=== PATIENT | female | born 1940 | race Hispanic/Latino ===

== ENCOUNTER 2019-09-02 12:34 | Outpatient (CLI) | payer MEDICARE ==
--- NOTE | 2019-09-02 13:18 | RAD ---
EXAM: Chest PA and lateral: HISTORY: Chest pain COMPARISON: 01/22/2019 FINDINGS: Heart: Normal cardiac silhouette Aorta: There is atherosclerosis and elongation of the aorta Pulmonary vessels: Normal Costophrenic angles: Costophrenic angles are clear. Lungs: No consolidation or masses. Pneumothorax: No pneumothorax Osseous structures: No osseous abnormalities IMPRESSION: No acute cardiopulmonary process. Atherosclerosis.
== END 2019-09-02 12:35 | disposition home or self-care (01) ==
LOC: BICRAD 12:34
PROVIDERS: ATTEND Internal Medicine
DX: R07.9 Chest pain, unspecified (principal); I70.0 Atherosclerosis of aorta
CPT/HCPCS: 71046

== ENCOUNTER 2021-12-03 08:24 | Outpatient (CLI) | payer MEDICARE ==
[2021-12-03] MEDS ORDERED: Iopamidol-370 76% 500 ML 1 ML ONE (09:08)
== END 2021-12-03 08:25 | disposition home or self-care (01) ==
LOC: BICCT 08:24
PROVIDERS: ATTEND Physician Assistant Medical
DX: R10.9 Unspecified abdominal pain (principal); K58.9 Irritable bowel syndrome, unspecified
CPT/HCPCS: 74177; 82565; Q9967

== ENCOUNTER 2022-11-22 10:14 | Emergency (ER) | payer MEDICARE ==
[2022-11-22 11:05] LABS: #Eosinphils 0.1 thou/uL (0.0-0.7); #Monocytes 0.5 thou/uL (0.11-0.59); #Neutrophils 3.1 thou/uL (1.40-6.50); %Basophils 0.4 % (0.0-1.0); %Eosinophils 1.9 % (0.0-10.0); %Lymphocytes 28.8 % (21.0-51.0); %Monocytes 8.8 % (0.0-10.0); %Neutrophils 59.7 % (42.0-75.0); Hematocrit 35.7 % (36.0-47.0); Hemoglobin 12.1 g/dL (12.0-16.0); Mean Corpuscular HGB CONC 33.9 g/dL (32.0-36.0); Mean Corpuscular Hemoglobin 31.8 pg (27.0-31.0); Mean Corpuscular Volume 93.9 fl (78.0-98.0); Platelet Count 197 10x3/uL (130-400); RBC Distribution Width 13.7 % (11.5-14.5); White Blood Cell (WBC) Count 5.3 10x3/uL (4.8-10.8)
[2022-11-22 11:35] LABS: ALT (SGPT) 49 U/L (8-55); AST (SGOT) 49 U/L (5-34); Albumin 4.1 g/dL (3.4-4.8); Alkaline Phosphatase 79 U/L (40-110); Anion Gap 13 mmol/L (10-20); BUN (Urea Nitrogen) 7 mg/dL (9.8-20.1); Bilirubin, Total 0.3 mg/dL (0.2-1.2); Calc. Creatinine Clearance 0 mL/min (70-130); Calcium 9.2 mg/dL (7.8-10.44); Carbon Dioxide 25 mmol/L (23-31); Chloride 105 mmol/L (98-107); Estimated GFR 71; Glucose 104 mg/dL (83-110); Magnesium 2.1 mg/dL (1.6-2.6); Potassium 3.5 mmol/L (3.5-5.1); Protein, Total 7.1 g/dL (5.8-8.1); Sodium 139 mmol/L (136-145)
[2022-11-22 13:21] LABS: Troponin I Less than 0.010 ng/mL (< 0.028)
[2022-11-22 14:03] LABS: Bacteria/HPF None Seen HPF (None Seen); Bilirubin Negative (Negative); Blood, Urine Trace (Negative); CAUTI Indications for Culture Dysuria,urgency,freq; Clarity Clear (Clear); Glucose, Urine (Dipstick) Normal (Negative); Ketone, Urine Negative (Negative); Leukocyte Negative Leu/uL (Negative); Nitrite Negative (Negative); Protein, Urine (Dipstick) Negative (Neg-Trace); RBC/HPF 0-3 HPF (0-3); Specific Gravity, Urine 1.004 (1.002-1.036); Squamous Epithelial 0-3 HPF (0-3); Urobilinogen Normal mg/dL (Less than 2); WBC/HPF None Seen HPF (0-3)
[2022-11-22 14:06] LABS: Urine Culture Reflex No No
== END 2022-11-22 14:05 | disposition home or self-care (01) ==
LOC: ERS 10:14
DX: R22.43 Localized swelling, mass and lump, lower limb, bilateral (principal); L03.115 Cellulitis of right lower limb; L03.116 Cellulitis of left lower limb; E78.2 Mixed hyperlipidemia; I10 Essential (primary) hypertension
CPT/HCPCS: 71045; 80053; 81001; 83735; 83880; 84484; 85025; 93005; 93970

== ENCOUNTER 2024-02-09 19:54 | Emergency (ER) | payer MEDICARE ==
[~2024-02-09 19:54] MED LIST: Iopamidol-370 76% 500 ML MDV (1 ML CHARGE) ONE
[2024-02-09 21:05] LABS: #Basophils 0.04 10x3/uL (0.0-0.2); %Basophils 0.6 % (0.0-1.0); %Eosinophils 0.8 % (0.0-10.0); %Lymphocytes 17.8 % (21.0-51.0); %Monocytes 6.5 % (0.0-10.0); %Neutrophils 74.2 % (42.0-75.0); Hematocrit 35.7 % (36.0-47.0); Hemoglobin 11.8 g/dL (12.0-16.0); Mean Corpuscular HGB CONC 33.1 g/dL (32.0-36.0); Mean Corpuscular Hemoglobin 28.9 pg (27.0-31.0); Mean Corpuscular Volume 87.3 fL (78.0-98.0); Mean Platelet Volume 12.1 fL (7.4-10.4); Platelet Count 161 10x3/uL (130-400); RBC Distribution Width 14.1 % (11.5-14.5); Red Blood Cell (RBC) Count 4.09 mill/uL (4.20-5.40)
[2024-02-09 21:10] LABS: Actual Bicarbonate (HCO3v) 20.7 mEq/L (22-28); Calcium, Ionized (venous) 1.14 mmol/L (1.16-1.32); Chloride (VBG) 105 mmol/L (98-106); Hematocrit-VBG 37 % (36.0-47.0); Hemoglobin (Hb) 12.6 g/dL (11.7-16.1); Potassium (VBG) 3.99 mmol/L (3.70-5.30); Sodium 139 mmol/L (133-146); pH (venous) 7.415 (7.32-7.43)
[2024-02-09 21:25] LABS: ALT (SGPT) 13 U/L (8-55); AST (SGOT) 19 U/L (5-34); Albumin 3.8 g/dL (3.4-4.8); Alkaline Phosphatase 84 U/L (40-110); Anion Gap 14 mmol/L (10-20); BUN (Urea Nitrogen) 13 mg/dL (9.8-20.1); Bilirubin, Total 0.5 mg/dL (0.2-1.2); Calc. Creatinine Clearance 0 mL/min (70-130); Calcium 8.8 mg/dL (7.8-10.44); Carbon Dioxide 20 mmol/L (23-31); Chloride 107 mmol/L (98-107); Estimated GFR 66; Globulin 3.1 g/dL (2.4-3.5); Glucose 106 mg/dL (83-110); Lipase 39 U/L (8-78); Potassium 3.9 mmol/L (3.5-5.1); Protein, Total 6.9 g/dL (5.8-8.1); Sodium 137 mmol/L (136-145)
[2024-02-09 21:29] LABS: Troponin I Less than 0.010 ng/mL (< 0.028)
[2024-02-09 22:00] LABS: Bacteria/HPF 2+ HPF (None Seen); Bilirubin Negative (Negative); Blood, Urine Negative (Negative); CAUTI Indications for Culture Dysuria,urgency,freq; Clarity Clear (Clear); Glucose, Urine (Dipstick) Normal (Negative); Ketone, Urine Negative (Negative); Leukocyte 250 Leu/uL (Negative); Nitrite Negative (Negative); Protein, Urine (Dipstick) Negative (Neg-Trace); RBC/HPF 0-3 HPF (0-3); Squamous Epithelial 0-3 HPF (0-3); Urobilinogen Normal mg/dL (Less than 2); pH, Urine 6.5 (5.0-9.0)
[2024-02-09 22:10] LABS: Urine Culture Reflex Yes Yes
[2024-02-09] MEDS ORDERED: Ketorolac Tromethamine 30 MG (1 mL) VIAL ONE (23:07)
[2024-02-09] MEDS ORDERED: Ondansetron PF 4 MG/2 ML Vial ONE (23:08)
== END 2024-02-10 00:49 | disposition home or self-care (01) ==
LOC: ERS 19:54
DX: K76.89 Other specified diseases of liver (principal); R07.1 Chest pain on breathing; N39.0 Urinary tract infection, site not specified; I10 Essential (primary) hypertension
CPT/HCPCS: 71045; 74177; 80053; 81001; 82805; 83605; 83690; 84484; 85025; 87077; 87086; 87186; 93005; 96374; 99284; J1885; J2405; Q9967